=== PATIENT | female | born 1995 | race Two or more races ===

== ENCOUNTER 2022-01-31 21:07 | Emergency (ER) | payer MEDICAID, OTHER ==
[~2022-01-31] VITALS: Ht 149.9 cm; Wt 68.0 kg
[2022-01-31] MEDS ORDERED: FAMOTIDINE (10MG/ML) 2ML VL IV ONE (23:00)
[2022-01-31] MEDS ORDERED: SODIUM CHLORIDE 0.9% 1,000 ML IV ONE (23:00)
[2022-01-31] MEDS ORDERED: ONDANSETRON HCL 4 MG/2 ML VIAL IV ONE (23:00)
[2022-01-31 23:06] LABS: Basophils # (auto) 0 10 ^3/uL (0-0.2); Basophils % (auto) 0.4 % (0.0-2.0); Eosinophils # (auto) 0 10 ^3/uL (0-0.8); Hematocrit 42.8 % (36.0-46.0); Hemoglobin 14.5 g/dL (12.2-16.2); Lymphocytes # (auto) 0.8 10 ^3/uL (0.4-5.4); Lymphocytes % (auto) 6.8 % (10.0-50.0); Mean Corpuscular Hemoglobin 29.2 pg (28.0-32.0); Mean Corpuscular Hgb Conc. 33.8 g/dL (32.0-36.0); Mean Corpuscular Volume 86.5 fL (80.0-100.0); Monocytes # (auto) 0.4 10 ^3/uL (0-1.3); Neutrophils % (auto) 88.8 % (37.0-80.0); Red Blood Cells 4.95 10^6/uL (4.0-5.20); Red Cell Distribution Width 14.1 % (11.8-14.3); White Blood Cell 11.3 10^3/uL (4.4-10.8)
[2022-01-31 23:23] LABS: Albumin 4.1 g/dL (3.4-5.0); BUN/Creatinine Ratio 10.1; Calcium 8.9 mg/dL (8.5-10.1); Potassium 3.4 mmol/L (3.5-5.1)
[2022-01-31 23:28] LABS: Bilirubin, Total 0.6 mg/dL (0.2-1.0); Total Protein 7.8 g/dL (6.4-8.2)
[2022-01-31 23:45] LABS: Urine Amorphous Crystal FEW /hpf (None Seen); Urine Bacteria FEW /hpf (None Seen); Urine Blood Negative /uL (Negative); Urine Mucus FEW (None Seen); Urine Specific Gravity 1.031 (1.001-1.035); Urine WBC 9 /hpf (0 - 5)
[2022-02-01] MEDS ORDERED: METOCLOPRAMIDE HCL 5MG/ml INJ 2ml VIAL IV ONE (02:15)
[2022-02-01] MEDS ORDERED: cefTRIAXone 1GM/50ML D5W 50 ML IV ONE (03:45)
[2022-02-01 04:07] VITALS: BP 124/71
[2022-02-01] MEDS ORDERED: CEPH500C PO (04:12)
== END 2022-02-01 04:45 | disposition home or self-care (01) ==
LOC: ER 21:10
DX: N39.0 Urinary tract infection, site not specified (principal); R11.2 Nausea with vomiting, unspecified; F12.10 Cannabis abuse, uncomplicated
CPT/HCPCS: 36415; 71046; 74177; 80053; 81001; 83690; 84484; 84702; 85025; 87086; 93005; 96361; 96365; 96375; 99285; J0696; J2405; J2765; J3490; J7030; 87088; 87186

== ENCOUNTER 2023-01-27 05:38 | Emergency (ER) | payer MEDICAID, OTHER ==
[~2023-01-27] VITALS: Ht 147.3 cm; Wt 57.0 kg
[2023-01-27 06:42] LABS: Basophils # (auto) 0 10 ^3/uL (0-0.2); Basophils % (auto) 0.4 % (0.0-2.0); Eosinophils # (auto) 0 10 ^3/uL (0-0.8); Hematocrit 40.8 % (36.0-46.0); Mean Corpuscular Hemoglobin 30.6 pg (28.0-32.0); Mean Corpuscular Hgb Conc. 34.3 g/dL (32.0-36.0); Mean Corpuscular Volume 89.2 fL (80.0-100.0); Monocytes # (auto) 0.4 10 ^3/uL (0-1.3); Monocytes % (auto) 4.7 % (0.0-12.0); Neutrophils # (auto) 6.5 10 ^3/uL (1.6-8.6); Neutrophils % (auto) 81.9 % (37.0-80.0); Red Blood Cells 4.57 10^6/uL (4.0-5.20); Red Cell Distribution Width 13.8 % (11.8-14.3); White Blood Cell 7.9 10^3/uL (4.4-10.8)
[2023-01-27 07:03] LABS: INR 0.92 (0.9-1.15); Partial Thromboplastin Time 24.5 sec (24.6-33.4)
[2023-01-27 07:29] LABS: Albumin 4.5 g/dL (3.4-5.0); Calcium 9.5 mg/dL (8.5-10.1); Magnesium 1.9 mg/dL (1.6-2.6); Potassium 3.8 mmol/L (3.5-5.1)
[2023-01-27 07:34] LABS: Bilirubin, Total 0.4 mg/dL (0.2-1.0); Total Protein 7.3 g/dL (6.4-8.2)
[2023-01-27] MEDS ORDERED: ONDANSETRON HCL 4 MG/2 ML VIAL IV ONE (08:30)
[2023-01-27] MEDS ORDERED: HYDROcodone-ACET 5/325MG TAB PO ONE (09:45)
[2023-01-27] MEDS ORDERED: FAMOTIDINE (10MG/ML) 2ML VL IV ONE (09:45)
[2023-01-27] MEDS ORDERED: LIDOCAINE VISCOUS 2% 15ML UD PO ONE (09:45)
[2023-01-27] MEDS ORDERED: MAALOX PLUS or MAALOX 30 ML PO ONE (09:45)
[2023-01-27 11:49] LABS: Urine Bacteria FEW /hpf (None Seen); Urine Blood Negative /uL (Negative); Urine Hyaline Cast FEW /lpf (0 - 2); Urine Mucus FEW (None Seen); Urine Specific Gravity 1.026 (1.001-1.035); Urine WBC 9 /hpf (0 - 5)
[2023-01-27 14:30] VITALS: BP 129/69
[2023-01-27] MEDS ORDERED: OMEP-434 PO (14:43)
[2023-01-27] MEDS ORDERED: ONDA-144 PO (14:43)
== END 2023-01-27 15:22 | disposition home or self-care (01) ==
LOC: ER 05:38
DX: K21.9 Gastro-esophageal reflux disease without esophagitis (principal); F12.10 Cannabis abuse, uncomplicated; Z32.02 Encounter for pregnancy test, result negative; Z20.822 Contact with and (suspected) exposure to COVID-19; Z79.899 Other long term (current) drug therapy
CPT/HCPCS: 36415; 71045; 80053; 81001; 81025; 83735; 83880; 84484; 85025; 85610; 85730; 87426; 93005; 96374; 96375; 99285; J2405; J3490

== ENCOUNTER 2023-05-21 20:04 | Emergency (ER) | payer OTHER ==
[~2023-05-21] VITALS: Ht 149.9 cm; Wt 54.0 kg
[~2023-05-21 20:04] MED LIST: OMEP-434 PO; ONDA-144 PO
[2023-05-21 21:53] LABS: Basophils # (auto) 0 10 ^3/uL (0-0.2); Basophils % (auto) 0.5 % (0.0-2.0); Eosinophils # (auto) 0.1 10 ^3/uL (0-0.8); Eosinophils % (auto) 0.8 % (0.0-7.0); Hemoglobin 13.3 g/dL (12.2-16.2); Lymphocytes # (auto) 1.7 10 ^3/uL (0.4-5.4); Lymphocytes % (auto) 25.9 % (10.0-50.0); Mean Corpuscular Hemoglobin 30.3 pg (28.0-32.0); Monocytes # (auto) 0.5 10 ^3/uL (0-1.3); Monocytes % (auto) 7.4 % (0.0-12.0); Neutrophils # (auto) 4.3 10 ^3/uL (1.6-8.6); Neutrophils % (auto) 65.4 % (37.0-80.0); Nucleated Red Blood Cells % 0.1 %; Red Blood Cells 4.39 10^6/uL (4.0-5.20); Red Cell Distribution Width 14.2 % (11.8-14.3); White Blood Cell 6.6 10^3/uL (4.4-10.8)
[2023-05-21 22:06] LABS: Albumin 3.6 g/dL (3.4-5.0); Calcium 8.2 mg/dL (8.5-10.1); Potassium 3.9 mmol/L (3.5-5.1)
[2023-05-21 22:11] LABS: BUN/Creatinine Ratio 8.8 (10.0-20.0); Bilirubin, Total 0.2 mg/dL (0.2-1.0); Total Protein 6.9 g/dL (6.4-8.2)
[2023-05-21 23:06] LABS: INR 0.95 (0.9-1.15); Partial Thromboplastin Time 27.6 SEC (24.5-34.5)
[2023-05-21 23:19] VITALS: BP 134/77
[2023-05-21 23:47] LABS: Urine Bacteria MANY /hpf (None Seen); Urine Blood Negative /uL (Negative); Urine Mucus FEW (None Seen); Urine Specific Gravity 1.018 (1.001-1.035); Urine WBC 21 /hpf (0 - 5)
[2023-05-22] MEDS ORDERED: CEPH500T PO (01:40)
[2023-05-22] MEDS ORDERED: CEPHALEXIN 250 MG CAP PO ONE (01:45)
== END 2023-05-22 02:03 | disposition home or self-care (01) ==
LOC: ER 20:04
DX: O26.851 Spotting complicating pregnancy, first trimester (principal); O23.41 Unspecified infection of urinary tract in pregnancy, first trimester; N39.0 Urinary tract infection, site not specified; Z3A.08 8 weeks gestation of pregnancy; Z98.890 Other specified postprocedural states; Z79.899 Other long term (current) drug therapy
CPT/HCPCS: 36415; 76801; 80053; 81001; 84702; 85025; 85610; 85730

== ENCOUNTER 2023-06-18 10:27 | Emergency (ER) | payer OTHER ==
[~2023-06-18] VITALS: Ht 149.9 cm; Wt 56.3 kg
[~2023-06-18 10:27] MED LIST changes: +CEPH500T PO
[2023-06-18 11:16] LABS: Basophils # (auto) 0.1 10 ^3/uL (0-0.2); Basophils % (auto) 0.6 % (0.0-2.0); Eosinophils # (auto) 0 10 ^3/uL (0-0.8); Eosinophils % (auto) 0.5 % (0.0-7.0); Hematocrit 38.8 % (36.0-46.0); Hemoglobin 12.8 g/dL (12.2-16.2); Lymphocytes % (auto) 21.1 % (10.0-50.0); Mean Corpuscular Hemoglobin 29.8 pg (28.0-32.0); Mean Corpuscular Volume 90.3 fL (80.0-100.0); Monocytes # (auto) 0.5 10 ^3/uL (0-1.3); Monocytes % (auto) 5.4 % (0.0-12.0); Neutrophils # (auto) 6.9 10 ^3/uL (1.6-8.6); Neutrophils % (auto) 72.4 % (37.0-80.0); Nucleated Red Blood Cells % 0.2 %; Red Blood Cells 4.29 10^6/uL (4.0-5.20); Red Cell Distribution Width 14.2 % (11.8-14.3); White Blood Cell 9.6 10^3/uL (4.4-10.8)
[2023-06-18 11:38] LABS: Potassium 3.6 mmol/L (3.5-5.1)
[2023-06-18 11:45] LABS: Albumin 3.2 g/dL (3.4-5.0); BUN/Creatinine Ratio 13.2 (10.0-20.0); Bilirubin, Total 0.2 mg/dL (0.2-1.0); Calcium 8.6 mg/dL (8.5-10.1); Total Protein 6.9 g/dL (6.4-8.2)
[2023-06-18] MEDS ORDERED: SODIUM CHLORIDE 0.9% 1,000 ML IV ONE (11:45)
[2023-06-18 12:49] LABS: Urine Bacteria MANY /hpf (None Seen); Urine Blood Negative /uL (Negative); Urine Mucus FEW (None Seen); Urine WBC 15 /hpf (0 - 5)
[2023-06-18] MEDS ORDERED: PROMETHAZINE HCL 25 MG/ML 1ML IV ONE (16:45)
[2023-06-18 18:03] VITALS: BP 108/57; PULSE 60; RESP 14; TEMP 98.6; O2SAT 99
== END 2023-06-18 18:08 | disposition home or self-care (01) ==
LOC: ER 10:27
DX: O26.891 Other specified pregnancy related conditions, first trimester (principal); R55 Syncope and collapse; R42 Dizziness and giddiness; R10.2 Pelvic and perineal pain; Z3A.12 12 weeks gestation of pregnancy
CPT/HCPCS: 36415; 76801; 80053; 81001; 82962; 84702; 85025; 93005; 96360; 99284; J7030

== ENCOUNTER 2023-11-12 18:10 | Observation (INO) | payer MEDICAID ==
[~2023-11-12] VITALS: Ht 149.9 cm; Wt 68.9 kg
[2023-11-12] MEDS ORDERED: LACTATED RINGER'S 1,000 ML IV ONE ×2 (19:00→20:45)
[2023-11-12] MEDS ORDERED: TERBUTALINE SULFATE 1 MG/ML 1ML VIAL SC ONE (19:02)
[2023-11-12] MEDS: TERBUTALINE SULFATE 1 MG/ML 1ML VIAL SC SCH ×3 (19:10→20:10)
[2023-11-12] MEDS ORDERED: cefTRIAXone 1GM/50ML D5W 50 ML IV ONE (22:30)
[2023-11-12] MEDS ORDERED: SODIUM CHLORIDE 0.9% 1,000 ML IV SCH (23:00)
[2023-11-12 23:03] LABS: Urine Bacteria NONE SEEN /hpf (None Seen); Urine Blood Negative /uL (Negative); Urine Clarity Clear (Clear); Urine Color Yellow (Yellow); Urine Mucus FEW (None Seen); Urine Protein, UAD Negative (Negative); Urine Urobilinogen Normal (Negative); Urine WBC 1 /hpf (0 - 5)
== END 2023-11-13 02:24 | disposition home or self-care (01) ==
LOC: LDRP 18:10
PROVIDERS: ADMIT Obstetrics & Gynecology; ATTEND Obstetrics & Gynecology
DX: O99.613 Diseases of the digestive system complicating pregnancy, third trimester (principal); O62.9 Abnormality of forces of labor, unspecified; O99.323 Drug use complicating pregnancy, third trimester; O26.893 Other specified pregnancy related conditions, third trimester; R10.30 Lower abdominal pain, unspecified; K80.20 Calculus of gallbladder without cholecystitis without obstruction; M54.50 Low back pain, unspecified; F12.90 Cannabis use, unspecified, uncomplicated; Z3A.33 33 weeks gestation of pregnancy
CPT/HCPCS: 59025; 76700; 76817; 76818; 81001; 81002; 94760; 96361; 96365; 96372; G0378; J0696; J3105; J7030; 96360

== ENCOUNTER 2024-05-17 11:04 | Inpatient (IN) | payer MEDICAID ==
[~2024-05-17] VITALS: Ht 149.9 cm; Wt 97.1 kg
[2024-05-17] MEDS: SODIUM CHLORIDE 0.9% 1,000 ML IVB ONE (11:51)
[2024-05-17] MEDS: PANTOPRAZOLE 40 MG/10 ML VIAL INJ IV ONE ×2 (11:54→15:21)
[2024-05-17] MEDS: PROCHLORPERAZINE EDISYLATE 5 MG/ML 2ML VIAL IV ONE (11:54)
[2024-05-17] MEDS: MORPHINE SULFATE 4 MG/ML SYR/VIAL IV ONE (11:56)
[2024-05-17 12:00] VITALS: RESP 16; O2SAT 97
[2024-05-17 12:17] LABS: Basophils # (auto) 0 10 ^3/uL (0-0.2); Basophils % (auto) 0.4 % (0.0-2.0); Eosinophils # (auto) 0 10 ^3/uL (0-0.8); Hematocrit 38.2 % (36.0-46.0); Hemoglobin 12.4 g/dL (12.2-16.2); Lymphocytes # (auto) 0.6 10 ^3/uL (0.4-5.4); Lymphocytes % (auto) 6.1 % (10.0-50.0); Mean Corpuscular Hgb Conc. 32.4 g/dL (32.0-36.0); Mean Corpuscular Volume 80.2 fL (80.0-100.0); Monocytes # (auto) 0.2 10 ^3/uL (0-1.3); Monocytes % (auto) 2.4 % (0.0-12.0); Neutrophils # (auto) 9.3 10 ^3/uL (1.6-8.6); Neutrophils % (auto) 91.1 % (37.0-80.0); Red Blood Cells 4.76 10^6/uL (4.0-5.20); White Blood Cell 10.2 10^3/uL (4.4-10.8)
[2024-05-17 12:37] LABS: Alanine Aminotransferase 15 U/L (7-40); Alkaline Phosphatase 91 U/L (46-116); Anion Gap 14 (5-15); Aspartate Aminotransferase 20 U/L (13-40); BUN/Creatinine Ratio 8.3 (10.0-20.0); Bilirubin, Total 0.5 mg/dL (0.2-1.0); Blood Urea Nitrogen 7 mg/dL (9-23); Calcium 10.3 mg/dL (8.7-10.4); Carbon Dioxide 18 mmol/L (20-30); Chloride 108 mmol/L (98-107); Glucose 147 mg/dL (74-106); Lipase 41 U/L (12-53); Potassium 3.6 mmol/L (3.5-5.1); Sodium 140 mmol/L (136-145)
[2024-05-17] MEDS ORDERED: DOCUSATE SOD 100 MG CAP PO PRN (14:45)
[2024-05-17] MEDS: SODIUM CHLORIDE 0.9% 1,000 ML IV SCH (15:18)
[2024-05-17 15:33] LABS: INR 0.97 (0.9-1.15); Prothrombin Time 10.3 sec (9.3-11.8)
[2024-05-17 16:42] VITALS: BP 103/52; PULSE 58; RESP 20; TEMP 98.3; O2SAT 97
[2024-05-17 17:02] VITALS: BP 103/62; PULSE 58; RESP 18; TEMP 98.3; O2SAT 97
[2024-05-17] MEDS: PIPERACILLIN-TAZOB 3.375GM 100 ML IV SCH (18:00)
[2024-05-17 21:00] VITALS: BP 117/53; PULSE 66; RESP 15; TEMP 98.4; O2SAT 96
[2024-05-18 01:00] VITALS: BP 110/68; PULSE 56; RESP 15; TEMP 98.1; O2SAT 94
[2024-05-18 05:00] VITALS: BP 113/64; PULSE 58; RESP 15; TEMP 98.2; O2SAT 99
[2024-05-18 07:24] LABS: Basophils # (auto) 0 10 ^3/uL (0-0.2); Basophils % (auto) 0.9 % (0.0-2.0); Eosinophils # (auto) 0 10 ^3/uL (0-0.8); Eosinophils % (auto) 0.5 % (0.0-7.0); Hematocrit 32.9 % (36.0-46.0); Hemoglobin 10.8 g/dL (12.2-16.2); Lymphocytes # (auto) 1.4 10 ^3/uL (0.4-5.4); Lymphocytes % (auto) 27.2 % (10.0-50.0); Mean Corpuscular Hemoglobin 25.9 pg (28.0-32.0); Mean Corpuscular Hgb Conc. 32.6 g/dL (32.0-36.0); Mean Corpuscular Volume 79.5 fL (80.0-100.0); Monocytes # (auto) 0.5 10 ^3/uL (0-1.3); Neutrophils # (auto) 3.3 10 ^3/uL (1.6-8.6); Neutrophils % (auto) 62.4 % (37.0-80.0); Nucleated Red Blood Cells % 0.1 %; Red Blood Cells 4.14 10^6/uL (4.0-5.20); Red Cell Distribution Width 16.8 % (11.8-14.3); White Blood Cell 5.3 10^3/uL (4.4-10.8)
[2024-05-18 07:48] LABS: Alanine Aminotransferase 11 U/L (7-40); Alkaline Phosphatase 78 U/L (46-116); Anion Gap 6 (5-15); Calcium 9.1 mg/dL (8.5-10.1); Carbon Dioxide 25 mmol/L (20-30); Chloride 110 mmol/L (98-107); Glucose 76 mg/dL (74-106); Potassium 3.5 mmol/L (3.5-5.1); Sodium 141 mmol/L (136-145)
[2024-05-18 07:49] LABS: Albumin 4.2 g/dL (3.2-4.8); Aspartate Aminotransferase 14 U/L (13-40); Bilirubin, Total 0.7 mg/dL (0.2-1.0)
[2024-05-18 07:50] LABS: Total Protein 6.5 g/dL (5.7-8.2)
[2024-05-18 08:05] VITALS: BP 110/67; PULSE 52; RESP 18; TEMP 98.3; O2SAT 98
[2024-05-18 08:37] LABS: BUN/Creatinine Ratio 6.8 (10.0-20.0); Blood Urea Nitrogen < 5 mg/dL (9-23)
[2024-05-18] MEDS: PANTOPRAZOLE 40 MG/10 ML VIAL INJ IV SCH (10:13)
[2024-05-18 12:00] VITALS: BP 122/63; PULSE 56; RESP 18; TEMP 98.9; O2SAT 97
[2024-05-18 16:00] VITALS: BP 101/61; PULSE 54; RESP 16; TEMP 99; O2SAT 98
[2024-05-18] MEDS: MORPHINE SULFATE INJ 2 MG/ml SYRG IV PRN (16:36)
[2024-05-18 21:09] VITALS: BP 125/88; PULSE 65; RESP 18; TEMP 98.3; O2SAT 98
[2024-05-19 01:00] VITALS: BP 143/63; PULSE 93; RESP 16; TEMP 98.2; O2SAT 96
[2024-05-19 05:00] VITALS: BP 127/65; PULSE 57; RESP 18; TEMP 97.8; O2SAT 100
[2024-05-19] MEDS ORDERED: ROCURONIUM 10MG/ML 10ML VIAL IV ONE (09:13)
[2024-05-19] MEDS ORDERED: KETOROLAC TROMETH 30 MG/ML 1ML VIAL ONE (09:13)
[2024-05-19] MEDS ORDERED: PROPOFOL 10 MG/ML 20 ML IV ONE (09:13)
[2024-05-19] MEDS ORDERED: DexAMETHasone SOD PHOS 10MG/1ML VIAL INJ ONE (09:13)
[2024-05-19] MEDS ORDERED: GLYCOPYRROLATE 0.2 MG/ML 1ML VIAL ONE (09:13)
[2024-05-19] MEDS ORDERED: LIDOCAINE 2% (LOCAL ANESTH.) PF 5ml SDV ONE ×2 (09:13→09:19)
[2024-05-19] MEDS ORDERED: fentaNYL CITRATE 100 MCG/2 ML VL ONE (09:14)
[2024-05-19] MEDS ORDERED: KETAMINE 50mg/ML 1ml syringe ONE (09:14)
[2024-05-19] MEDS ORDERED: SUGAMMADEX 200mg/2ml Vial (100MG/ML) IV ONE (09:17)
[2024-05-19] MEDS ORDERED: ESMOLOL HCL 10 ML IV ONE (09:37)
[2024-05-19] MEDS: BUPIVACAINE 0.25% INJ 50ML VIAL ONE (09:54)
[2024-05-19] MEDS: LIDOCAINE W/ EPINEPHRINE 1% 20ML VIAL ONE (09:54)
[2024-05-19] MEDS: ONDANSETRON HCL 4 MG/2 ML VIAL ONE ×2 (10:15→16:26)
[2024-05-19] MEDS ORDERED: hydrALAZINE HCL 20 MG/ML VL IV PRN ×2 (10:30→12:15)
[2024-05-19] MEDS ORDERED: fentaNYL CITRATE 100 MCG/2 ML VL IV PRN (10:30)
[2024-05-19] MEDS ORDERED: ONDANSETRON HCL 4 MG/2 ML VIAL IV PRN ×2 (10:30→12:15)
[2024-05-19] MEDS ORDERED: ePHEDrine SULFATE 50 MG/ML AMP IV PRN (10:30)
[2024-05-19] MEDS ORDERED: LABETALOL HCL 5 MG/ML 4ML SYRINGE IV PRN (10:30)
[2024-05-19] MEDS ORDERED: NALOXONE HCL 0.4 MG/ML VIAL IV PRN (10:30)
[2024-05-19] MEDS ORDERED: FLUMAZENIL 0.1 MG/ML INJ 10ML MDV IV PRN (10:30)
[2024-05-19] MEDS: HYDROmorphone HCL 2 MG/ML VL/or syr IV PRN (10:40)
[2024-05-19] MEDS: ONDANSETRON HCL 4 MG/2 ML VIAL IV PRN (12:30)
[2024-05-19 14:35] VITALS: BP 180/96; PULSE 59; RESP 17; TEMP 98.1; O2SAT 97
[2024-05-19] MEDS: ceFAZolin 1GM/50ML 100 ML IV ONE (16:24)
[2024-05-19] MEDS: CELECOXIB 100 MG CAP PO ONE (16:24)
[2024-05-19] MEDS: ACETAMINOPHEN IV 1000 MG/100ML (10MG/ML) IV ONE (16:24)
[2024-05-19] MEDS: D5W/SOD CHL 0.45%/KCL 20MEQ 1,000 ML IV SCH (16:25)
[2024-05-19] MEDS: GABAPENTIN 400 MG CAP PO ONE (16:25)
[2024-05-19] MEDS: HYDROmorphone HCL 2 MG/ML VL/or syr ONE (16:26)
[2024-05-19] MEDS: oxyCODONE HCL 5MG TAB PO PRN (16:43)
[2024-05-19 17:43] VITALS: BP 163/92; PULSE 72; RESP 17; TEMP 98.1; O2SAT 96
[2024-05-19 20:00] VITALS: O2SAT 96
[2024-05-19 21:00] VITALS: BP 155/75; PULSE 58; RESP 17; TEMP 98.1; O2SAT 97
[2024-05-20] VITALS (7 sets, daily range): BP systolic 110–122; BP diastolic 63–75; PULSE 16–61; RESP 16–18; TEMP 97.9–98.4; O2SAT 95–100
[2024-05-20 06:21] LABS: Basophils # (auto) 0 10 ^3/uL (0-0.2); Basophils % (auto) 0.3 % (0.0-2.0); Eosinophils # (auto) 0 10 ^3/uL (0-0.8); Hematocrit 30.7 % (36.0-46.0); Hemoglobin 10.1 g/dL (12.2-16.2); Lymphocytes # (auto) 1.5 10 ^3/uL (0.4-5.4); Mean Corpuscular Hgb Conc. 32.8 g/dL (32.0-36.0); Red Cell Distribution Width 16.8 % (11.8-14.3); White Blood Cell 7.5 10^3/uL (4.4-10.8)
[2024-05-20 06:24] LABS: Lymphocytes % (auto) 20.1 % (10.0-50.0); Mean Corpuscular Hemoglobin 25.8 pg (28.0-32.0); Mean Corpuscular Volume 78.6 fL (80.0-100.0); Monocytes # (auto) 0.7 10 ^3/uL (0-1.3); Monocytes % (auto) 9.6 % (0.0-12.0); Neutrophils # (auto) 5.2 10 ^3/uL (1.6-8.6); Red Blood Cells 3.91 10^6/uL (4.0-5.20)
[2024-05-20 06:41] LABS: Alanine Aminotransferase 52 U/L (7-40); Albumin 3.8 g/dL (3.2-4.8); Alkaline Phosphatase 111 U/L (46-116); Amylase 68 U/L (30-118); Anion Gap 5 (5-15); Aspartate Aminotransferase 59 U/L (13-40); BUN/Creatinine Ratio 7.4 (10.0-20.0); Blood Urea Nitrogen 5 mg/dL (9-23); Carbon Dioxide 26 mmol/L (20-30); Chloride 106 mmol/L (98-107); Glucose 103 mg/dL (74-106); Lipase 34 U/L (12-53); Potassium 3.5 mmol/L (3.5-5.1); Sodium 137 mmol/L (136-145)
[2024-05-20 06:42] LABS: Bilirubin, Total 0.8 mg/dL (0.2-1.0)
[2024-05-20] MEDS: PANTOPRAZOLE 40 MG/10 ML VIAL INJ IV SCH (09:18)
[2024-05-20] MEDS ORDERED: AMOX500T86 PO (12:45)
[2024-05-20] MEDS ORDERED: ACE3T PO (12:45)
== END 2024-05-20 17:38 | disposition home or self-care (01) | DRG 263 ==
LOC: ER 11:04 → OVERFLOW 14:45 → WEST WING 15:36
PROVIDERS: ADMIT Nurse Practitioner Family; ATTEND Nurse Practitioner Acute Care
PROC: 0FT44ZZ Resection of Gallbladder, Percutaneous Endoscopic Approach (ICD-10-PCS; principal; 2024-05-19 09:17)
DX: K80.00 Calculus of gallbladder with acute cholecystitis without obstruction (principal); D50.9 Iron deficiency anemia, unspecified; K21.9 Gastro-esophageal reflux disease without esophagitis; F12.10 Cannabis abuse, uncomplicated; Z79.2 Long term (current) use of antibiotics; Z79.899 Other long term (current) drug therapy; Z83.3 Family history of diabetes mellitus; Z98.891 History of uterine scar from previous surgery
CPT/HCPCS: 36415; 74181; 76705; 80053; 80320; 82150; 82247; 83690; 84702; 85025; 85610; 86850; 86900; 86901; C9113; G0378; J0131; J1100; J1885; J2001; J2405; J2543; J2704; J3490

== ENCOUNTER 2024-11-21 23:12 | Emergency (ER) | payer MEDICAID ==
[~2024-11-21] VITALS: Ht 149.9 cm; Wt 63.8 kg
[~2024-11-21 23:12] MED LIST changes: +ACE3T PO; +AMOX500T86 PO
[2024-11-21] MEDS ORDERED: DICYCLOMINE HCL (10MG/ML) 2 ML AMPULE IM ONE (23:30)
[2024-11-21] MEDS ORDERED: ONDANSETRON HCL 4 MG/2 ML VIAL IM ONE (23:30)
--- NOTE | 2024-11-21 23:36 | ED.PDOC ---
GI ASSESSMENT HPI Comments 29-year-old female who came to ER for abdominal pain. Patient is a , approximately 18 weeks . States for the past 2 days she has been having lower abdominal pain associated multiple bouts of nausea and vomiting. States he could not keep anything in. Denies any vaginal bleeding. Vital signs were stable on arrival. 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/20/24 Amoxicillin & Pot Clavulanate (Augmentin) 500 Mg Tab, 1 TAB PO BID for 3 Days, #6 TAB Prov:ANTOLIN HERNANDEZ [employer] HAND[employer]ORPERSON 05/20/24 Cephalexin Monohydrate (Cephalexin) 500 Mg Tab, 1 TAB PO TID for 7 Days, #21 TAB Prov:ANDREIA VENTURA DO 05/22/23 Omeprazole Magnesium (Omeprazole) 20 Mg Tab, 20 MG PO DAILY for 14 Days, #14 TAB Prov:DIANN SULLIVAN MD 01/27/23 Ondansetron (Zofran) 4 Mg Tab, 1 TAB PO Q8HR PRN for 3 Days, #9 TAB Prov:DIANN SULLIVAN MD 01/27/23 Information Source: Patient Mode of Arrival: Ambulatory Timing: Days Duration: Intermittent Prehospital treatment: None Quality: Aching Vomitus: Watery Stool: Normal Severity: Moderate Recent: None Recent Hx of: Abdominal Surgery, Current Pain Location: Epigastric Associated sign and symptoms: Nausea, Vomiting, Abdominal Pain Past Medical History Past Medical History (Other): Patient states she is 18 weeks . 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 Hx 5 Para 3 LMP July 13, 2024 Family History Family History: Family hx of DM Social History Smoker: Non-Smoker Alcohol: Denies ETOH Use Drugs: Denies Drug Use Lives In: Home Constitutional: denies: chills, diaphoresis, fatigue, fever, malaise, sweats, weakness, others EENTM: denies: blurred vision, double vision, ear bleeding, ear discharge, ear drainage, ear pain, ear ringing, eye pain, eye redness, hearing loss, mouth pain, mouth swelling, nasal discharge, nose bleeding, nose congestion, nose pain, photophobia, tearing, throat pain, throat swelling, voice changes, others Respiratory: denies: cough, hemoptysis, orthopnea, SOB at rest, shortness of breath, SOB with excertion, stridor, wheezing, others Cardiovascular: denies: chest pain, dizzy spells, diaphoresis, Dyspnea on exertion, edema, irregular heart beat, left arm pain, lightheadedness, palpitations, PND, syncope, others Gastrointestinal: reports: abdominal pain, nausea, vomiting; denies: abdomen distended, blood streaked bowels, constipated, diarrhea, dysphagia, difficulty swallowing, hematemesis, melena, poor appetite, poor fluid intake, rectal bleeding, rectal pain, others Genitourinary: denies: abnormal vagina bleeding, burning, dyspareunia, dysuria, flank pain, frequency, hematuria, incontinence, pain, , vagina discharge, urgency, others Neurological: denies: dizziness, fainting, headache, left sided numbness, left sided weakness, numbness, paresthesia, pre-existing deficit, right sided numbness, right sided weakness, seizure, speech problems, tingling, tremors, weakness, others Musculoskeletal: denies: back pain, gout, joint pain, joint swelling, muscle pain, muscle stiffness, neck pain, others Integumetry: denies: bruises, change in color, change in hair/nails, dryness, laceration, lesions, lumps, rash, wounds, others Allergic/Immunocompromised: denies: Difficulty Healing, Frequent Infections, Hives, Itching, others Hematologic/Lymphatic: denies: anemia, blood clots, easy bleeding, easy bruising, swollen glands, others Endocrine: denies: excessive hunger, excessive sweating, excessive thirst, excessive urination, flushing, intolerance to cold, intolerance to heat, u nexplained weight gain, unexplained weight loss, others Psychiatric: denies: anxiety, bipolar disorder, depression, hopeless, panic disorder, schizophrenia, sleepless, suicidal, others Physical Exam General Appearance: Moderate Distress (Moderate distress due to abdominal pain and nausea concerns.), Normal HEENT: Normal ENT Inspection, Pharynx Normal, TMs Normal Neck: Full Range of Motion, Non-Tender, Normal, Normal Inspection Respiratory: Chest Non-Tender, Lungs Clear, No Accessory Muscle Use, No Respiratory Distress, Normal Breath Sounds Cardiovascular: No Edema, No JVD, No Murmur, No Gallop, Normal Peripheral Puls es, Regular Rate/Rhythm Breast Exam: Deferred Gastrointestinal: No Pulsatile Mass, Normal Bowel Sounds, Soft, Other (Diffuse bilateral lower abdominal/pelvic tenderness to palpation throughout. appreciated. No signs of trauma. Mild suprapubic tenderness.) Genitalia: Deferred Pelvic: Deferred Rectal: Deferred Extremities: No calf tenderness, Normal capillary refill, Normal inspection, Normal range of motion, Non-tender, No pedal edema Musculoskeletal : Apperance: Normal Neurologic: Alert, No Motor Deficits, Normal Affect, Normal Mood, No Sensory Deficits Cerebellar Function: Normal Reflexes: Normal Skin: Dry, Normal Color, Warm Lymphatic: No Adenopathy Was a procedure done? Was a procedure done?: No GI differential Dx Differential Diagnosis: Gastroenteritis, UTI, , Other (Influenza a/B, COVID-19) X-Ray, Labs, Meds, VS Vital Signs Date Time Temp Pulse Resp B/P (MAP) Pulse Ox O2 Delivery O2 Flow Rate FiO2 11/21/24 23:38 97.4 69 20 134/91 (105) 100 Lab Test 11/21/24 23:33 Range/Units Urine Color Light-orange Yellow Urine Clarity Turbid H Clear Urine pH 6.0 5.0-9.0 Urine Specific [place] 1.034 1.001-1.035 Urine Protein 1+ H Negative Urine Ketones 4+ H Negative Urine Blood Negative Negative /uL Urine Nitrite 2+ H Negative Urine Bilirubin Negative Negative Urine Urobilinogen Normal Negative mg/dL Urine Leukocyte Esterase 1+ Negative /uL Urine RBC 3 0 - 4 /hpf Urine WBC 22 0 - 5 /hpf Urine Squamous Epithelial Cells Mod <5 /hpf Urine Bacteria Many H None Seen /hpf Urine Mucus Few None Seen Urine Glucose Trace Normal mg/dL Influenza Type A Antigen Negative Negative Influenza Type B Antigen Negative Negative SARS-CoV-2 Antigen (Rapid) Negative NEGATIVE X-Ray, Labs, Meds, VS Comment All studies performed the ED were evaluated by me personally. Swabs were unremarkable for COVID or influenza, but urinalysis was positive for UTI. Patient was given her 1st dose of antibiotics tonight prior to discharge. Advised patient utilize ABX as directed until completion as well as additional medication as needed. Time of 1ST Reevaluation: 00:53 Reevaluation 1ST: Improved Consultation: PCP Patient Education/Counseling: Diagnosis, Treatment Family Education/Counseling: Diagnosis, Treatment, No Family Present Departure 1 Departure Time of Disposition: 00:53 Impression: Primary Impression: Urinary tract infection Disposition: HOME / SELF CARE / HOMELESS Condition: Stable Additional Instructions: Advised patient utilize antibiotics as directed until completion as well as additional medication as needed. Patient should follow up with her OB for continued management of her current . e-Prescriptions Ondansetron Odt 4MG Tab (ZOFRAN PO) 4 Mg Tb 4 MG PO Q6HP PRN, #20 TAB ODT TAB-DISSOLVE IN MOUTH, THEN SWALLOW Prov: ERIC HASKINS PAC 11/22/24 Dicyclomine Hcl (BENTYL CAPSULE) 10 Mg Cp 1 CAP PO Q6HPRN, #20 CAP 0 Refills Prov: ERIC HASKINS PAC 11/22/24 Nitrofurantoin Monohydrate Mac (Macrobid) 100 Mg Cap 100 MG PO BID for 5 Days, #10 CAP Prov: ERIC HASKINS PAC 11/22/24 Discharged With: Self, Friend Critical Care Note Critical Care Time?: No Stability Stability form required: No Heart Score Heart Score: Heart Score Response (Comments) Value History N/A 0 EKG N/A 0 Age N/A 0 Risk Factors N/A 0 Troponin N/A 0 Total 0 I personally scribed for ERIC HASKINS PAC ([email or web address]) on 11/21/24 at 23:36. Electronically submitted by Luc Nelson ([email or web address]). ERIC HASKINS PAC Nov 21, 2024 23:36
[2024-11-21 23:38] VITALS: BP 134/91; PULSE 69; RESP 20; O2SAT 100
[2024-11-22 00:08] LABS: Urine Bacteria MANY /hpf (None Seen); Urine Blood Negative /uL (Negative); Urine Clarity Turbid (Clear); Urine Color Light-Orange (Yellow); Urine Mucus FEW (None Seen); Urine Protein, UAD 1+ (Negative); Urine Specific Gravity 1.034 (1.001-1.035); Urine Urobilinogen Normal (Negative); Urine WBC 22 /hpf (0 - 5)
[2024-11-22 00:32] LABS: COVID19 ANTIGEN SOFIA FIA NEGATIVE (NEGATIVE)
[2024-11-22 00:39] LABS: Rapid Influenza A Negative (Negative); Rapid Influenza B Negative (Negative)
[2024-11-22] MEDS ORDERED: NITR-87 PO (00:55)
[2024-11-22] MEDS ORDERED: DICY10CA PO (00:55)
[2024-11-22] MEDS ORDERED: ZOFR4T PO (00:55)
[2024-11-22] MEDS ORDERED: NITROFURANTOIN 100 mg CAP PO ONE (01:00)
== END 2024-11-22 01:24 | disposition left against medical advice (07) ==
LOC: ER 23:12
DX: O23.42 Unspecified infection of urinary tract in pregnancy, second trimester (principal); Z3A.18 18 weeks gestation of pregnancy; Z90.49 Acquired absence of other specified parts of digestive tract; Z79.899 Other long term (current) drug therapy; Z20.822 Contact with and (suspected) exposure to COVID-19
CPT/HCPCS: 36415; 81001; 87426; 87804